=== PATIENT | male | born 1995 | race Caucasian/White ===

== ENCOUNTER 2016-09-16 15:41 | Emergency (ER) | payer BC ==
[~2016-09-16] VITALS: Ht 180.3 cm; Wt 63.6 kg
[2016-09-16 15:44] VITALS: BP 130/78; PULSE 79; TEMP 99
[2016-09-16] MEDS ORDERED: RITALIN LA20 MG PO (15:47)
== END 2016-09-16 16:53 | disposition home or self-care (01) ==
LOC: COL.ER 15:41
DX: K08.89 Other specified disorders of teeth and supporting structures (principal); F17.200 Nicotine dependence, unspecified, uncomplicated